=== PATIENT | female | born 1965 | race Caucasian/White ===

== ENCOUNTER 2018-08-31 05:37 | Outpatient (CLI) | payer OTHER ==
[~2018-08-31] VITALS: Ht 170.2 cm; Wt 112.9 kg
[2018-08-31] MEDS ORDERED: LEVO5TAB28 PO (10:03)
[2018-08-31] MEDS ORDERED: METF-399 PO (10:03)
[2018-08-31] MEDS ORDERED: DULO60CA6 PO (10:03)
[2018-08-31] MEDS ORDERED: GLUC-116 PO (10:03)
[2018-08-31] MEDS ORDERED: PREG150C PO (10:03)
[2018-08-31] MEDS ORDERED: ARIP15TA4 PO (10:03)
[2018-08-31] MEDS ORDERED: CYAN250010 PO (10:03)
[2018-08-31] MEDS ORDERED: BUPR300T43 PO (10:03)
[2018-08-31] MEDS ORDERED: ATOR40TA70 PO (10:03)
[2018-08-31] MEDS ORDERED: LISI5TAB PO (10:03)
[2018-08-31] MEDS ORDERED: CYCL10TA9 PO (10:03)
[2018-08-31] MEDS ORDERED: OMEP20CA12 PO (10:03)
[2018-08-31] MEDS ORDERED: OXYC1TAB87 PO (10:03)
[2018-08-31] MEDS ORDERED: FURO-125 PO (10:03)
[2018-08-31] MEDS ORDERED: HYDR50TA76 PO (10:03)
[2018-08-31] MEDS ORDERED: FENO160T12 PO (10:03)
[2018-08-31] MEDS ORDERED: CHOL200025 PO (10:03)
[2018-08-31] MEDS ORDERED: TRAZ150T72 PO (10:03)
[2018-08-31] MEDS ORDERED: NF-SOLIF5T PO (10:03)
== END 2018-08-31 10:08 | disposition home or self-care (01) ==
LOC: PREOP 05:37
PROVIDERS: ATTEND Orthopaedic Surgery
DX: Z01.818 Encounter for other preprocedural examination (principal)

== ENCOUNTER 2018-09-05 07:18 | Day surgery (SDC) | payer OTHER ==
[~2018-09-05] VITALS: Ht 170.2 cm; Wt 111.7 kg
[2018-09-05] VITALS (11 sets, daily range): BP systolic 91–115; BP diastolic 45–67
[~2018-09-05 07:18] MED LIST: ARIP15TA4 PO; ATOR40TA70 PO; BUPR300T43 PO; CHOL200025 PO; CYAN250010 PO; CYCL10TA9 PO; DULO60CA6 PO; FENO160T12 PO; FURO-125 PO; GLUC-116 PO; HYDR50TA76 PO; LEVO5TAB28 PO; LISI5TAB PO; METF-399 PO; NF-SOLIF5T PO; OMEP20CA12 PO; OXYC1TAB87 PO; PREG150C PO; TRAZ150T72 PO
[2018-09-05] MEDS ORDERED: BACITRACIN 100,000 UNIT/NS 1000 ML POUR BOTTLE IR ONE ×2 (07:45)
[2018-09-05] MEDS ORDERED: ceFAZolin 2 GM/50 ML NS 50 ML ONE (07:48)
[2018-09-05] MEDS: LACTATED RINGERS 1,000 ML IV PRN ×2 (07:55→10:15)
[2018-09-05] MEDS ORDERED: ceFAZolin 2 GM/50 ML NS 50 ML IV ONE (08:00)
[2018-09-05] MEDS ORDERED: CATHETER FLUSH 10 ML SYR IV PRN (08:00)
[2018-09-05] MEDS ORDERED: VANCOMYCIN 1000 MG/VIAL ONE (08:02)
[2018-09-05] MEDS ORDERED: BUP/EPI 0.5% 1:200,000 (SENSORCAINE) 30 ML VIAL ONE (08:02)
[2018-09-05] MEDS ORDERED: SEVOFLURANE (ULTANE) 15 ML INHAL SOLN ONE ×3 (08:04→10:30)
[2018-09-05] MEDS ORDERED: PROPOFOL INJECTION 50 ML IV ONE ×3 (08:04→09:33)
[2018-09-05] MEDS ORDERED: MIDAZOLAM 2 MG/2 ML (VERSED) VIAL ONE (08:04)
[2018-09-05] MEDS ORDERED: ONDANSETRON 4 MG/2 ML (SDV) Z0FRAN ONE (08:04)
[2018-09-05] MEDS ORDERED: fentaNYL INJECTION 100 MCG/2 ML AMP ONE ×2 (08:04→09:19)
[2018-09-05] MEDS ORDERED: DEXAMETHASONE 10 MG/ML (DECADRON) 1 ML VIAL ONE (08:04)
[2018-09-05 08:33] LABS: BUN/CREATININE RATIO 12; CALCIUM 9.1 MG/DL (8.5-10.1); CARBON DIOXIDE 18 MMOL/L (21-32); CHLORIDE 109 MMOL/L (98-107); CREATININE SERUM 0.85 MG/DL (0.60-1.30); GFR ESTIMATED > 60; GLUCOSE 189 MG/DL (70-105); POTASSIUM 4.3 MMOL/L (3.6-5.0); SODIUM 141 MMOL/L (135-145)
[2018-09-05] MEDS ORDERED: SUCCINYLCHOLINE INJ 100 MG/5 ML SYR ONE (09:00)
[2018-09-05] MEDS ORDERED: OXYC1TAB87 PO (10:11)
--- NOTE | 2018-09-05 10:11 | Diagnostic Imaging Report ---
Indication: Fluoroscopy for spinal cord stimulator placement. Fluoroscopy was provided in the OR during spinal cord stimulator placement. 10 seconds of fluoroscopy was utilized. A single image demonstrates a paddle spinal cord stimulator the midline of the lower thoracic spine. Impression: Fluoroscopy during spinal cord stimulator placement. Dictated by: Dictated on workstation # [id number]
--- NOTE | 2018-09-05 10:12 | Discharge Inst-Simple/Standard ---
Discharge Inst-Standard Discharge Medications New, Converted or Re-Newed RX: RX on Chart Patient Instructions/Follow Up Plan of Care/Instructions/FU: follow up in clinic in 2 weeks dont bend lift twist reach push or pull 5 lb weigth restriction keep incisoin covered clean and dry Activity as Tolerated: No Discharge Diet: ADA Diet Return to The Hospital For: new weakness or numbness chest pain shortness of breath FLASH DUBOSE September 05, 2018 10:12
[2018-09-05] MEDS ORDERED: oxyCODONE/APAP 5/325MG (PERCOCET 5) TABLET PO ONE (10:15)
[2018-09-05] MEDS ORDERED: fentaNYL INJECTION 100 MCG/2 ML AMP IVP ONE (10:30)
[2018-09-05] MEDS ORDERED: ONDANSETRON 4 MG/2 ML (SDV) Z0FRAN IVP PRN (10:30)
[2018-09-05] MEDS ORDERED: RT-ALBUTEROL SULF 2.5 MG/3 ML PRE-MIX VIAL INH ONE (10:30)
[2018-09-05] MEDS ORDERED: RT-ALBUTEROL HFA (VENTOLIN) PER PUFF IH ONE (10:31)
--- NOTE | 2018-09-05 21:34 | OPERATIVE REPORT ---
DATE OF SERVICE: 09/05/2018 SURGEON: Roberto Hutton DO. WOOL HAT FLANGER: GENARO Alvarado. This is a medically necessary procedure. Assistance was necessary for retraction of vital neurovascular structures. Without an mechanic's assistant, the procedure would not be possible. PREOPERATIVE DIAGNOSES: 1. Chronic pain syndrome. 2. Lumbar radiculopathy. POSTOPERATIVE DIAGNOSES: 1. Chronic pain syndrome. 2. Lumbar radiculopathy. PROCEDURES PERFORMED: 1. Placement of spinal cord stimulator paddle lead via thoracic laminotomies. 2. Placement of pulse generator. 3. Complex programming. COMPLICATIONS: None. ESTIMATED BLOOD LOSS: Minimal. DRAINS PLACED: None. ANESTHESIA: General endotracheal tube anesthesia with local anesthetic. ESTIMATED BLOOD LOSS: Minimal. HISTORY OF PRESENT ILLNESS: The patient is a very pleasant 53-year-old female, who presented to me after a very successful percutaneous spinal cord stimulator trial. She did wish to have a permanent. DESCRIPTION OF PROCEDURE: The patient was identified by name on wrist band in the preoperative holding area. Her operative site was signed, consent was signed. SCDs were placed. Neuro monitoring was hooked up and antibiotics were started. She was taken to the operating room theater and placed under general endotracheal tube anesthesia and then transferred in the prone position. She was prepped and draped in the usual sterile fashion. Formal timeout was conducted. A midline thoracic incision was then made. Bilateral subperiosteal paraspinal muscular approach then took place at the appropriate level. At the T8-9 level, I then used a [place] rongeur followed by high speed bur and Kerrison rongeurs to perform a laminotomy. I gained access to the epidural space. I then passed a [place] Penta lead in the midline position behind the body of T8. I anchored this into the thoracic fascia. I then turned my attention to the right-sided flank wound. I made an incision and developed a subcutaneous pocket. I tunneled the leads underneath the skin into that pocket where I hooked up a pulse generator, final tightened that pulse generator. I buried the pulse generator in the soft tissue. At this point, I irrigated the wound, maintained hemostasis and closed the wounds utilizing #0 Vicryl followed by 2-0 Vicryl followed by running 3-0 subcuticular stitch. We applied dressings and took the patient in supine position to the PACU where she awoke without incident. She tolerated the procedure well. PLAN: At this time is to discharge the patient today. I will see the patient back in 2 weeks. She knows to avoid any bending, twisting, pushing, pulling and to keep her wound clean and dry. Job ID: [id number] DocumentID: [id number] Dictated Date: 09/05/2018 14:03:50 Sander Hand Date: 09/05/2018 21:33:35 Dictated By: ROBERTO HUTTON,
== END 2018-09-05 12:25 | disposition home or self-care (01) ==
LOC: SDC 07:18
PROVIDERS: ATTEND Orthopaedic Surgery
DX: M54.16 Radiculopathy, lumbar region (principal); G89.4 Chronic pain syndrome; I10 Essential (primary) hypertension; E78.5 Hyperlipidemia, unspecified; G47.33 Obstructive sleep apnea (adult) (pediatric); E11.40 Type 2 diabetes mellitus with diabetic neuropathy, unspecified; F32.9 Major depressive disorder, single episode, unspecified; K21.9 Gastro-esophageal reflux disease without esophagitis; E66.01 Morbid (severe) obesity due to excess calories; Z79.899 Other long term (current) drug therapy; Z79.84 Long term (current) use of oral hypoglycemic drugs; Z88.5 Allergy status to narcotic agent; Z68.39 Body mass index [BMI] 39.0-39.9, adult
CPT/HCPCS: 36415; 80048; 82962; 87081